=== PATIENT | female | born 1985 | race Caucasian/White ===

== ENCOUNTER 2021-09-15 15:26 | Outpatient (CLI) | payer OTHER, SELFPAY ==
--- NOTE | ~2021-09-15 | US_ITS ---
EXAMINATION: US venous doppler [facility] DATE: 09/15/2021 16:08 INDICATION: Bilateral lower limb pain TECHNIQUE: Plunkett scale images without and with compression and Doppler images of the bilateral lower e xtremity veins were obtained. COMPARISON: None FINDINGS: The right common femoral vein, profunda femoral vein, femoral vein, popliteal vein, peroneal trunk, p osterior tibial veins, and greater saphenous vein are patent. The left common femoral vein, profunda femoral vein, femoral vein, popliteal vein, peroneal trunk, po sterior tibial veins, and greater saphenous vein are patent. IMPRESSION: 1. Patent bilateral lower extremity veins. No evidence of deep venous thrombosis. Reviewed, dictated and finalized at location A. ING INSPECTOR IMPRESSION: 1. Patent bilateral lower extremity veins. No evidence of deep venous thrombosi s.
== END 2021-09-15 15:27 | disposition home or self-care (01) ==
LOC: ANHIMG 15:34
PROVIDERS: Visit Provider Advanced Practice Midwife
DX: M79.606 Pain in leg, unspecified (principal)
CPT/HCPCS: 93970

== ENCOUNTER 2021-12-11 15:42 | Outpatient (CLI) | payer OTHER, SELFPAY ==
[2021-12-11 16:01] VITALS: BP 132/84; PULSE 87
[2021-12-11 16:26] VITALS: BP 132/84; PULSE 91
--- NOTE | 2021-12-11 16:40 | PC.NURSE ---
7564- Spoke with Wilmer Hogan CNM, ROm plus negative, Orders to discharge to home.
== END 2021-12-11 16:41 | disposition home or self-care (01) ==
LOC: ANHOBOP 15:49 → ANHOBPP 15:50
PROVIDERS: Visit Provider Advanced Practice Midwife
DX: O42.90 Premature rupture of membranes, unspecified as to length of time between rupture and onset of labor, unspecified weeks of gestation (principal); Z3A.00 Weeks of gestation of pregnancy not specified
CPT/HCPCS: 59025; 84112; 99199

== ENCOUNTER 2022-01-14 12:31 | Observation (INO) | payer OTHER, SELFPAY ==
--- NOTE | 2022-01-14 14:53 | OBADM ---
This patient, Perla Chowdhury, admitted to the OB room Labor/Delivery/Recovery 105 for observation. Patient/family oriented to hospital policies and general routines including ID bracelet, bed and alarms, visiting hours, pain management, procedures, bathroom and other care routines, personal items, smoking policy, room service/diet, and visiting hours. Patient/Family are encouraged to report perceived risks to care and to ask questions if they do not understand what they are told or what they should do.
--- NOTE | 2022-02-04 16:46 | PM.OBTRLD ---
OB - Triage/Final Diagnosis Visit Information Comments/Additional reasons for admission: I have assessed the risk for this patient, Perla Woodard, and determined that she would benefit from observation care. Final Diagnosis (1) False labor: Code(s): O47.9 - False labor, unspecified Status: Acute
== END 2022-01-14 15:00 | disposition home or self-care (01) ==
PROVIDERS: Admitting Provider Obstetrics & Gynecology; Visit Provider Obstetrics & Gynecology
DX: O47.1 False labor at or after 37 completed weeks of gestation (principal); Z3A.37 37 weeks gestation of pregnancy
CPT/HCPCS: G0378; G0379

== ENCOUNTER 2022-01-16 11:08 | Observation (INO) | payer OTHER, SELFPAY ==
[2022-01-16 12:49] VITALS: BMI 32.0
== END 2022-01-16 13:00 | disposition home or self-care (01) ==
PROVIDERS: Admitting Provider Obstetrics & Gynecology; Visit Provider Obstetrics & Gynecology
DX: O47.1 False labor at or after 37 completed weeks of gestation (principal); Z3A.38 38 weeks gestation of pregnancy
CPT/HCPCS: G0378; G0379

== ENCOUNTER 2022-01-18 15:58 | Inpatient (IN) | payer OTHER, SELFPAY ==
[2022-01-18] VITALS (44 sets, daily range): BP systolic 94–147; BP diastolic 53–104; PULSE 72–155; RESP 18–20; TEMP 36.4–37.4; O2SAT 94–100; BMI 32.4
--- OUTSIDE RECORDS SUMMARY | 2022-01-18 16:21 | XMS_ITS | Encounter Summary ---
:1985 Author Reason for Visit OB visit OB [id number] EDC 01/29/2022 LMP 04/22/2021 Assessment and Plan 1. Routine care Discussion Note: None recorded.Patient educational handouts: No information available. Plan of Care Reminders Provider Appointments None ? ? recorded. Lab None ? ? recorded. Referral None ? ? recorded. Procedures None ? ? recorded. Surgeries None ? ? recorded. Imaging None ? ? recorded. Medications Name Start Date ? ? ? Medications Administered None recorded. Vitals Height Weight BMI Blood Pressure 5 ft 8 in 212 lbs 32.2 kg/m2 129/75 mm[Hg] Results Lab Results None recorded. Allergies Code Code System Name Reaction Severity Onset NKDA ? ? ? Problems Name Status Onset Date Source ? Active 07/21/2021 ? Procedures Date Name Performed by ? 10/07/2005 Extraction of [place] Tooth Information n ot available Vaccine List None recorded. Social History Tobacco Smoking Status Current Some Day Smoker What ty
--- OUTSIDE RECORDS SUMMARY | 2022-01-18 16:21 | XMS_ITS | Encounter Summary ---
:1985 Author Reason for Visit OB visit [id number] Assessment and Plan 1. Routine care Discussion [...] BMI Blood Pressure 5 ft 8 in 202 lbs 30.7 kg/m2 117/77 mm[Hg] Results Lab Results None recorded. Allergies Code Code System Name Reaction Severity Onset NKDA ? ? ? Problems Name Status Onset Date Source ? Active 07/21/2021 ? Procedures Date Name Performed by ? 10/07/2005 Extraction of [place] Tooth Information n ot available 11/24/2021 Non-stress Test [place] [address]
--- OUTSIDE RECORDS SUMMARY | 2022-01-18 16:21 | XMS_ITS | Encounter Summary ---
:1985 Author Reason for Visit OB visit Assessment and Plan 1. Routine care Discussion [...] BMI Blood Pressure 5 ft 8 in 197 lbs 30 kg/m2 110/65 mm[Hg] Results Lab Results None recorded. Allergies Code Code System Name Reaction Severity Onset NKDA ? ? ? Problems Name Status Onset Date Source ? Active 07/21/2021 ? Procedures Date Name Performed by ? 10/07/2005 Extraction of [place] Tooth Information n ot available 09/25/2021 US, Obstetric, 2Nd or 3Rd Trimester [place] [address]
--- OUTSIDE RECORDS SUMMARY | 2022-01-18 16:21 | XMS_ITS ---
:1985 Author Care Team Providers Name Role Phone Tegan Mauricioguido Landeros Primary Care Provider Unavailable Allergies Code Code System Name Reaction Severity Status Onset NKDA ? Medications Name Status Start Date Stop Date ? ? COVID-19 test specimen collection Completed ? 06/23/2021 USE DIRECTED Diflucan 150 mg tablet Completed 08/21/2018 8 take 1 tablet by oral route once Flagyl 500 mg tablet Completed 09/02/2018 11/14/2020 take 1 tablet by oral route every 12 hours Macrobid 100 mg capsule Completed 08/21/2018 08/27/20 18 take 1 capsule by oral route every 12 hours with food Metamucil Completed ? 10/23/2021 naproxen 500 mg tablet Completed ? 1 TAKE 1 TABLET BY MOUTH TWICE DAILY WITH FOOD Nortrel 1/35 (28) 1 mg-35 mcg tablet Completed ? 06/23/2021 TAKE 1 TABLET BY MOUTH EVERY DAY Active ? Not available Problems Name Status Onset Date Source ? Atypical Squamous Cells of Unknown 07/22/2018 Histo ry Undetermined Significance on Cervical Papanicolaou Smear SNOMED CT Concept Unknown 07/22/2018 History Urinary Tract Infectious Disease Unknown 08/20/2018 History Acute Vaginitis Unknown 08/27/[address] Concept Unknown 08/17/2019 History Active 07/21/2021 ? Procedures Date Name Performed by ? 10/07/2005 Extraction of [place] Tooth Infor
--- OUTSIDE RECORDS SUMMARY | 2022-01-18 16:21 | XMS_ITS | Encounter Summary ---
:1985 Author Reason for Visit None recorded. Assessment and Plan 1. Reduced movement ? non-stress test Discussion Note: None recorded.Patient educational handouts: No information available. Plan of Care Reminders Provider Appointments None ? ? recorded. Lab None ? ? recorded. Referral None ? ? recorded. Procedures None ? ? recorded. Surgeries None ? ? recorded. Imaging 11/24/2021 [place] Non-stress Test Medications Name Start Date ? ? ? Medications Administered None recorded. Vitals None recorded. Results Lab Results None recorded. Allergies Code Code System Name Reaction Severity Onset NKDA ? ? ? Problems Name Status Onset Date Source ? Active 07/21/2021 ? Procedures Date Name Performed by ? 10/07/2005 Extraction of [place] Tooth Information n ot available 11/24/2021 Non-stress Test [place] [address] [place] [address]
--- OUTSIDE RECORDS SUMMARY | 2022-01-18 16:21 | XMS_ITS | Encounter Summary ---
:1985 Author Reason for Visit OB visit [id number] Assessment and Plan 1. Routine care Discussion [...] BMI Blood Pressure 5 ft 8 in 205 lbs 31.2 kg/m2 110/73 mm[Hg] Results Lab Results None recorded. Allergies Code Code System Name Reaction Severity Onset NKDA ? ? ? Problems Name Status Onset Date Source ? Active 07/21/2021 ? Procedures Date Name Performed by ? 10/07/2005 Extraction of [place] Tooth Information n ot available 11/24/2021 Non-stress Test [place] [address]
--- OUTSIDE RECORDS SUMMARY | 2022-01-18 16:21 | XMS_ITS | Encounter Summary ---
:1985 Author Reason for Visit OB visit OB [id number] EDC 01/29/2022 LMP 04/22/2021 Assessment and Plan [...] BMI Blood Pressure 5 ft 8 in 210 lbs 31.9 kg/m2 117/71 mm[Hg] Results Lab Results None recorded. Allergies Code Code System Name Reaction Severity Onset NKDA ? ? ? Problems Name Status Onset Date Source ? Active 07/21/2021 ? Procedures Date Name Performed by ? 10/07/2005 Extraction of [place] Tooth Information n ot available Vaccine List None recorded. Social History Tobacco Smoking Status Current Some Day Smoker What t
--- OUTSIDE RECORDS SUMMARY | 2022-01-18 16:21 | XMS_ITS | Encounter Summary ---
:1985 Author Reason for Visit OB visit OB [id number] EDC 01/29/2022 LMP 04/22/2021 Assessment and Plan Assessment Note Patient is _35__weeks . Dis cussed plan. 1. Routine care Discussion Note: None recorded.Patient [...] ft 8 in 212 lbs 32.2 kg/m2 121/75 mm[Hg] Results Lab Results None recorded. Allergies Code Code System Name Reaction Severity Onset NKDA ? ? ? Problems Name Status Onset Date Source ? Active 07/21/2021 ? Procedures Date Name Performed by ? 10/07/2005 Extraction of [place] Tooth Information n ot available
--- NOTE | 2022-01-18 16:41 | LDADM ---
This patient, Perla Woodard, was admitted to Labor/Delivery/Recovery 105 on 01/18/22 at 15:58. Plans for labor, pain management and were discussed with patient. Patient/family oriented to hospital policies and general routines including ID bracelet, bed and alarms, visiting hours, pain management, procedures, bathroom and other care routines, personal items, smoking policy, room service/diet and guest tray routines, security routines, and visiting hours. Patient/Family are encouraged to report perceived risks to care and to ask questions if they do not understand what they are told or what they should do. See OBIX for further documentation.
[2022-01-18 17:03] LABS: Basophils Percent Auto 0.4 % (0.2-1.2); Eosinophils Absolute Auto 0.1 K/mm3 (0-0.3); Hematocrit 39.3 % (37.0-47.0); Hemoglobin 13.3 g/dL (12.0-15.0); Immature Granulocyte Absolute 0.05 K/mm3 (0.00-0.031); Immature Granulocyte Percent A 0.5 % (0-0.5); Lymphocytes Absolute Auto 2.18 K/mm3 (0.9-3.2); Lymphocytes Percent Auto 21.5 % (18.3-44.2); Mean Corpuscular HGB Conc 33.8 g/dl (32-36); Mean Corpuscular Hemoglobin 31.1 pg (26-34); Mean Platelet Volume 9.7 fl (7.4-10.4); Monocytes Absolute Auto 0.6 K/mm3 (0.1-0.6); Monocytes Percent Auto 6.3 % (2.6-8.5); Neutrophils Absolute Auto 7.1 K/mm3 (1.3-6.7); Neutrophils Percent Auto 70.3 % (45.5-73.1); Platelet Count Result 263 k/mm3 (150-375); Red Blood Count 4.27 M/mm3 (4.2-5.4); Red Cell Distribution Width 12.9 % (11.5-14.5); White Blood Count 10.2 K/mm3 (4.5-10.0)
[2022-01-18 17:14] LABS: Alanine Aminotransferase 17 U/L (4-35); Albumin Level 3.5 g/dL (3.5-5.1); Alkaline Phosphatase 153 U/L (38-126); Anion Gap 6 mmol/L (8-16); Aspartate Amino Transferase 28 U/L (14-36); Bilirubin,Total 0.2 mg/dL (0.2-1.3); Blood Urea Nitrogen 10 mg/dL (7-17); Calcium 9.3 mg/dL (8.4-10.2); Carbon Dioxide 21 mmol/L (22-30); Chloride 107 mmol/L (98-107); Estimated Glomerular Filt Rate > 60; Glucose 75 mg/dL (65-110); Potassium 3.5 mmol/L (3.4-5.0); Sodium 134 mmol/L (137-145)
[2022-01-18 18:36] LABS: Uric Acid 5.5 mg/dL (2.5-7.5)
[2022-01-18] MEDS: LACTATED RINGERS 1,000 ML 125 ML IV CONT ×2 (18:38→21:35)
--- NOTE | 2022-01-18 19:14 | WPDANESEPP ---
Anes - Eval Pre Procedure Procedure: labor epidural Date/Time: 01/18/22 19:14 Surgeon: ciro Preop Diagnosis: pain during labor Pre Op Diagnosis: Labor Patient Data Age: 36 Gender: F Height: 1.73 m Weight: 96.8 kg Last Vital Signs Temp 37.1 C 01/18/22 17:31 Pulse 82 01/18/22 19:00 Resp 20 01/18/22 17:31 BP 121/77 01/18/22 19:00 Allergies Allergy/AdvReac Type Severity Reaction Status Date / Time No Known Allergies Allergy Verified 12/30/21 12:47 Home Medications Medication Instructions Recorded Confirmed Type vit no.[id number] 1 tablet PO DAILY 12/11/21 01/18/22 History cetirizine [Zyrtec] 10 mg PO DAILY 01/18/22 01/18/22 History docusate sodium [Colace] 100 mg PO DAILY PRN 01/18/22 01/18/22 History Laboratory Tests 01/18/22 01/18/22 01/18/22 16:44 16:44 16:44 WBC 10.2 K/mm3 H K/mm3 (4.5-10.0) RBC 4.27 M/mm3 M/mm3 (4.2-5.4) Hgb 13.3 g/dL g/dL (12.0-15.0) Hct 39.3 % % (37.0-47.0) MCV 92.0 fl fl (80-100) MCH 31.1 pg pg (26-34) MCHC 33.8 g/dl g/dl (32-36) RDW 12.9 % % (11.5-14.5) Plt Count 263 k/mm3 k/mm3 (150-375) MPV 9.7 fl fl (7.4-10.4) Immature Gran % (Auto) 0.5 % % (0-0.5) Neut % (Auto) 70.3 % % (45.5-73.1) Lymph % (Auto) 21.5 % % (18.3-44.2) [place] % (Auto) 6.3 % % (2.6-8.5) Eos % (Auto) 1.0 % % (0-4.4) Baso % (Auto) 0.4 % % (0.2-1.2) Lymph # (Auto) 2.18 K/mm3 K/mm3 (0.9-3.2) [place] # (Auto) 0.6 K/mm3 K/mm3 (0.1-0.6) Eos # (Auto) 0.1 K/mm3 K/mm3 (0-0.3) Baso # (Auto) 0.0 K/mm3 K/mm3 (0.0-0.1) Abs Immat Gran (auto) 0.05 K/mm3 H K/mm3 (0.00-0.031) Absolute Neuts (auto) 7.1 K/mm3 H K/mm3 (1.3-6.7) Absolute Nucleated RBC 0.0 K/mm3 K/mm3 (0.0-0.012) Nucleated RBC % 0.0 % % (0.0-0.2) Sodium Potassium Chloride Carbon Dioxide Anion Gap BUN Creatinine Estim Creat Clear Calc Estimated GFR Glucose Uric Acid Calcium Total Bilirubin AST ALT Alkaline Phosphatase Total Protein Albumin RPR Pending Blood Type B Positive Antibody Screen Negative 01/18/22 01/18/22 16:44 16:44 WBC RBC Hgb Hct MCV MCH MCHC RDW Plt Count MPV Immature Gran % (Auto) Neut % (Auto) Lymph % (Auto) [place] % (Auto) Eos % (Auto) Baso % (Auto) Lymph # (Auto) [place] # (Auto) Eos # (Auto) Baso # (Auto) Abs Immat Gran (auto) Absolute Neuts (auto) Absolute Nucleated RBC Nucleated RBC % Sodium 134 mmol/L L mmol/L (137-145) Potassium 3.5 mmol/L mmol/L (3.4-5.0) Chloride 107 mmol/L mmol/L (98-107) Carbon Dioxide 21 mmol/L L mmol/L (22-30) Anion Gap 6 mmol/L L mmol/L (8-16) BUN 10 mg/dL mg/dL (7-17) Creatinine 0.70 mg/dL mg/dL (0.7-1.0) Estim Creat Clear Calc Not Reportable Estimated GFR > 60 (59 - ) Glucose 75 mg/dL mg/dL (65-110) Uric Acid 5.5 mg/dL mg/dL (2.5-7.5) Calcium 9.3 mg/dL mg/dL (8.4-10.2) Total Bilirubin 0.2 mg/dL mg/dL (0.2-1.3) AST 28 U/L U/L (14-36) ALT 17 U/L U/L (4-35) Alkaline Phosphatase 153 U/L H U/L (38-126) Total Protein 7.0 g/dL g/dL (6.3-8.2) Albumin 3.5 g/dL g/dL (3.5-5.1) RPR Blood Type Antibody Screen Patient hx anesthesia problems: none Family hx
--- NOTE | 2022-01-18 19:46 | WPDOBADMIT ---
Obstetrics - Admit Note Admission Note: record reviewed. No pertinent additions to the history and/or any subsequent changes in the physical findings that are not consistent with the expected course of the were found. Pt admitted in labor SVE /-2, AROM large amount of clear odorless fluid. Additions to the history and/or subsequent changes in the physical findings follow. None.
[2022-01-18] MEDS: OXYTOCIN 30 UNITS/NS 500 ML 30 UNITS/500 ML BAG 6 UNITS IV CONT (21:33)
[2022-01-18] MEDS: ONDANSETRON INJ 4 MG/2 ML VIAL IV PUSH (22:51)
[2022-01-19] VITALS (33 sets, daily range): BP systolic 57–121; BP diastolic 21–94; PULSE 88–278; RESP 14–16; TEMP 37.2–37.7; O2SAT 93–100
[2022-01-19] MEDS: fentaNYL CITRATE INJ (*CRX) 100 MCG/2 ML VIAL IV PUSH (00:52)
[2022-01-19] MEDS: miSOPROStol 200 MCG TABLET 1000 MCG RECTAL (01:09)
[2022-01-19] MEDS: METHYLERGONOVINE MALEATE 0.2 MG/ML VIAL IM (01:10)
[2022-01-19] MEDS: WITCH HAZEL 40 PADS 1 PAD TOPICAL (04:00)
[2022-01-19] MEDS: BENZOCAINE 20% AER SPR (*SP) 56 GM CAN 1 SPRAY TOPICAL (04:00)
--- NOTE | 2022-01-19 04:20 | OBPPTRN ---
Patient transferred to post room #288 via wheelchair. Support person present. Oriented to unit, room, information board, rooming in, admission packet and security measures. Patient verbalizes understanding.
[2022-01-19] MEDS: IBUPROFEN 600 MG TABLET PO ×3 (05:25→19:16)
[2022-01-19] MEDS: ceFAZolin 2 GM/D5W 50 ML 2 GM/50 ML BAG IVPB (05:30)
[2022-01-19 05:48] LABS: Rapid Plasma Reagin Non-Reactive (NonReactive)
[2022-01-19 08:31] LABS: Basophils Percent Auto 0.2 % (0.2-1.2); Eosinophils Percent Auto 0.2 % (0-4.4); Hematocrit 34.1 % (37.0-47.0); Hemoglobin 11.3 g/dL (12.0-15.0); Immature Granulocyte Absolute 0.08 K/mm3 (0.00-0.031); Immature Granulocyte Percent A 0.5 % (0-0.5); Lymphocytes Absolute Auto 2.62 K/mm3 (0.9-3.2); Lymphocytes Percent Auto 16.2 % (18.3-44.2); Mean Corpuscular HGB Conc 33.1 g/dl (32-36); Mean Corpuscular Volume 93.7 fl (80-100); Mean Platelet Volume 9.4 fl (7.4-10.4); Monocytes Absolute Auto 1.2 K/mm3 (0.1-0.6); Monocytes Percent Auto 7.6 % (2.6-8.5); Neutrophils Absolute Auto 12.2 K/mm3 (1.3-6.7); Neutrophils Percent Auto 75.3 % (45.5-73.1); Platelet Count Result 224 k/mm3 (150-375); Red Blood Count 3.64 M/mm3 (4.2-5.4); White Blood Count 16.2 K/mm3 (4.5-10.0)
--- NOTE | 2022-01-19 09:24 | P.PCNOB_ITS ---
OB - Delivery Note Procedure Delivery date: 01/19/22 Procedure: vaginal delivery Induction method: None Delivery augmentation: Rupture of Membranes and Pitocin Delivery monitor: External FHT and External Uterine Route of delivery: Episiotomy description: None Laceration Description: None Specimen: Yes Quantitative Blood Loss (ml): 1,035 Anesthesia type: Epidural Disposition: Floor [place] Baby Date of : 01/19/22 Time of : 12:33 Weeks of gestation at delivery: 38 Infant gender: Female Weight (pounds): 6 Weight (ounces): 15 presentation: vertex position: Left Occiput Anterior Placenta delivery description: Manual Removal, Uterine Exploration and Abnormal Configuration Cord Vessel Description: 3 Vessels, Clamped/Cut and Delayed Cord Clamping score one minute: 9 score five minutes: 9 Narrative: placenta had to be manually removed in pieces, uterine exploration, atony of uterus after removal, cytotec, massage and methergine given with no resolution, BAKRI placed with 400cc balloon, US at bs confirmed balloon in uterine cavity, pt bernie well
--- NOTE | 2022-01-19 09:27 | P.PNOB_ITS ---
OB - PN: Subj Subjective Date/time seen: 01/19/22 09:27 pt doing well, bleeding has been very minimal OB - PN: Obj Data Labs CBC & Chem 7: 01/19/22 08:04 01/18/22 16:44 Labs: Laboratory Results - last 24 hr 01/18/22 01/18/22 01/18/22 16:44 16:44 16:44 WBC 10.2 H RBC 4.27 Hgb 13.3 Hct 39.3 MCV 92.0 MCH 31.1 MCHC 33.8 RDW 12.9 Plt Count 263 MPV 9.7 Immature Gran % (Auto) 0.5 Neut % (Auto) 70.3 Lymph % (Auto) 21.5 [place] % (Auto) 6.3 Eos % (Auto) 1.0 Baso % (Auto) 0.4 Lymph # (Auto) 2.18 [place] # (Auto) 0.6 Eos # (Auto) 0.1 Baso # (Auto) 0.0 Abs Immat Gran (auto) 0.05 H Absolute Neuts (auto) 7.1 H Absolute Nucleated RBC 0.0 Nucleated RBC % 0.0 Sodium Potassium Chloride Carbon Dioxide Anion Gap BUN Creatinine Estim Creat Clear Calc Estimated GFR Glucose Uric Acid Calcium Total Bilirubin AST ALT Alkaline Phosphatase Total Protein Albumin RPR Non-reactive Blood Type B Positive Antibody Screen Negative 01/18/22 01/18/22 01/19/22 16:44 16:44 08:04 WBC 16.2 H RBC 3.64 L Hgb 11.3 L Hct 34.1 L MCV 93.7 MCH 31.0 MCHC 33.1 RDW 13.0 Plt Count 224 MPV 9.4 Immature Gran % (Auto) 0.5 Neut % (Auto) 75.3 H Lymph % (Auto) 16.2 L [place] % (Auto) 7.6 Eos % (Auto) 0.2 Baso % (Auto) 0.2 Lymph # (Auto) 2.62 [place] # (Auto) 1.2 H Eos # (Auto) 0.0 Baso # (Auto) 0.0 Abs Immat Gran (auto) 0.08 H Absolute Neuts (auto) 12.2 H Absolute Nucleated RBC 0.0 Nucleated RBC % 0.0 Sodium 134 L Potassium 3.5 Chloride 107 Carbon Dioxide 21 L Anion Gap 6 L BUN 10 Creatinine 0.70 Estim Creat Clear Calc Not Reportable Estimated GFR > 60 Glucose 75 Uric Acid 5.5 Calcium 9.3 Total Bilirubin 0.2 AST 28 ALT 17 Alkaline Phosphatase 153 H Total Protein 7.0 Albumin 3.5 RPR Blood Type Antibody Screen OB - PN A/P Plan Comments: plan to monitor bleeding Time Spent With Patient Time: Total time spent is greater than 50% in coordination of care (as documented) at patient's floor/unit and/or counseling patient: Review of Systems Review of Systems: All systems reviewed & are unremarkable except as noted in HPI and below Exam Narrative: bakri balloon deflated, removed 400 cc fluid and removed easily, pt bernie well, fundus firm with minimal bleeding
[2022-01-19] MEDS: MULTIVIT/MIN/PREN/FOL AC/IRON TABLET 1 TAB PO (13:07)
[2022-01-20] MEDS: IBUPROFEN 600 MG TABLET PO (05:16)
--- NOTE | 2022-01-20 07:39 | WPDANLDPN2 ---
Anes-Prog Note L&D Date/Time: 01/20/22 07:39 Comfortable throughout: labor Neuraxial method: epidural Epidural/Spinal procedure site: clean & non-tender Neuro status: Neuro function grossly intact. Cardiovascular status: normal Respiratory status: normal Airway patency: baseline Mental status: baseline Post-Op hydration status: normal Vital Signs: Last Vital Signs Temp 37.3 C 01/19/22 20:20 Pulse 90 01/19/22 20:20 Resp 16 01/19/22 20:20 BP 114/66 01/19/22 20:20 Pulse Ox 98 01/19/22 17:00 Pain score (VAS): 3 Post-procedural complaints: none Patient feedback: Patient satisfied with anesthetic care.
[2022-01-20] MEDS: MULTIVIT/MIN/PREN/FOL AC/IRON TABLET 1 TAB PO (09:03)
[2022-01-20 09:05] VITALS: BP 128/87; PULSE 92; RESP 14; TEMP 36.9; O2SAT 98
--- NOTE | 2022-01-20 09:59 | PM.OBPNVD ---
OB - PN: Subj Subjective Date/time seen: 01/20/22 09:59 Patient comments: no complaints baby status: doing well [place] feeding status: exclusively bottle feeding OB - PN: Obj Data Labs CBC & Chem 7: 01/19/22 08:04 01/18/22 16:44 OB - PN A/P Plan day: 1 Plan: routine care and discharge home Time Spent With Patient Time: Total time spent is greater than 50% in coordination of care (as documented) at patient's floor/unit and/or counseling patient: Review of Systems Review of Systems: All systems reviewed & are unremarkable except as noted in HPI and below Exam Const: General: cooperative, healthy appearing, comfortable and no acute distress
--- NOTE | 2022-01-20 10:00 | PM.OBDSVD ---
DS: Admitting Diagnosis Discharge Date 01/20/22 Admitting Diagnosis labor OB - DS: Summary OB Procedures : None OB Procedures Intrapartum: Spontaneous Vag Delivery and Uterine exploration OB Procedures: : None Time Spent with Patient Time attestation: Total time spent providing and/or coordinating discharge services: DS: Data Data Completed and Pending Pending studies at discharge: Pending at discharge 01/19/22 01:47 Surgical [PTH] Routine Discharge Plan Discharge Attending physician on discharge: Eloisa Javed Discharging Clinician: Angelica Munguia Patient Disposition: Home, Self-Care Activity: pelvic rest Diet: regular Patient Instructions: Antibiotic Form Stand Alone Forms: General Discharge Information Follow-up/Referrals: Angelica Munguia, CNM [Certified Nurse Equipment Maintenance Technician] - 4 Weeks Discharge Medications: Continued cetirizine [Zyrtec] 10 mg Tablet 10 mg PO DAILY RF: 0 docusate sodium [Colace] 100 mg Capsule 100 mg PO DAILY PRN (Reason: Constipation) RF: 0 vit no.[id number] 400 mcg- 25 mg Tablet,Chewable 1 tablet PO DAILY RF: 0 Date of admission: 01/18/22 15:58 Primary Care Provider: UNKNOWN,DOCTOR Admitting Provider: Eloisa Javed Attending physician on admission: Eloisa Javed Condition: Stable
--- NOTE | 2022-01-20 12:55 | PC.NURSE ---
Patient viewed the discharge video Mother & Baby Care, The First Two Weeks . Patient was given the opportunity and encouraged to ask questions. Patient verbalized understanding of information shared and has been given the mother/baby guide for home reference.
[2022-01-22 12:03] VITALS: BP 111/65; PULSE 88; RESP 20; TEMP 37; O2SAT 100
== END 2022-01-20 13:15 | disposition home or self-care (01) | DRG 768 ==
LOC: ANHLDR 16:40 → ANHOB2 01-19 04:55
PROVIDERS: Advanced Practice Midwife; Admitting Provider Obstetrics & Gynecology; Visit Provider Obstetrics & Gynecology
DX: O72.1 Other immediate postpartum hemorrhage (principal); Z37.0 Single live birth; Z3A.38 38 weeks gestation of pregnancy
CPT/HCPCS: 36415; 80053; 84550; 85025; 86592; 86850; 86900; 86901; 88307; A9270; G0378; G0379; J0690; J2210; J2405; J2590; J2795; J3010; J7120